=== PATIENT | female | born 1980 | race Caucasian/White ===

== ENCOUNTER 2018-11-03 19:46 | Day surgery (SDC) | payer OTHER ==
[2018-11-03 20:47] LABS: BHCG - Serum POSITIVE (NEGATIVE); Pregs Control Background? CLEAR/WHITE (CLR/WHITE); Pregs Control Bar Appear? YES (CONTROL BAR)
[2018-11-03 20:53] LABS: #Eosinphils 0.2 thou/uL (0.0-0.7); #Lymphocytes 1.5 thou/uL (1.20-3.40); #Monocytes 0.4 thou/uL (0.11-0.59); #Neutrophils 8.8 thou/uL (1.40-6.50); %Basophils 0.3 % (0.0-1.0); %Lymphocytes 13.5 % (21.0-51.0); %Neutrophils 80.3 % (42.0-75.0); Hemoglobin 11.7 g/dL (12.0-16.0); Mean Corpuscular HGB CONC 35.7 g/dL (32.0-36.0); Mean Corpuscular Hemoglobin 36.3 pg (27.0-31.0); Mean Platelet Volume 6.6 fL (7.4-10.4); Platelet Count 199 thou/uL (130-400); RBC Distribution Width 13.2 % (11.5-14.5); Red Blood Cell (RBC) Count 3.22 mill/uL (4.20-5.40); White Blood Cell (WBC) Count 10.9 thou/uL (4.8-10.8)
[2018-11-03 21:00] LABS: ALT (SGPT) 13 U/L (8-55); AST (SGOT) 14 U/L (5-34); Albumin 3.3 g/dL (3.5-5.0); Alkaline Phosphatase 102 U/L (40-150); Anion Gap 11 mmol/L (10-20); BUN (Urea Nitrogen) Less than 4 mg/dL (7.0-18.7); Bilirubin, Total 0.5 mg/dL (0.2-1.2); Calc. Creatinine Clearance 0 mL/min (70-130); Calcium 8.7 mg/dL (7.8-10.44); Carbon Dioxide 25 mmol/L (22-29); Chloride 103 mmol/L (98-107); Estimated GFR-MDRD 78; Globulin 2.9 g/dL (2.4-3.5); Glucose 87 mg/dL (70-105); Potassium 3.6 mmol/L (3.5-5.1); Protein, Total 6.2 g/dL (6.0-8.3); Sodium 135 mmol/L (136-145)
[2018-11-03 21:56] VITALS: BP 107/68; TEMP 98.3; BMI 25.8
[2018-11-03 22:19] LABS: Bacteria/HPF 2+ HPF (None Seen); Bilirubin Negative (Negative); Blood, Urine Trace (Negative); Clarity Turbid (Clear); Glucose, Urine (Dipstick) Normal (Negative); Leukocyte 500 Leu/uL (Negative); Nitrite Negative (Negative); Protein, Urine (Dipstick) 20 mg/dL (Neg-Trace); Squamous Epithelial 0-3 HPF (0-3); Urobilinogen Normal mg/dL (Less than 2); WBC/HPF Greater than 50 HPF (0-3)
[2018-11-03 22:30] LABS: Urine Culture Reflex Yes Yes; Yeast-Budding None Seen HPF (None Seen)
--- NOTE | 2018-11-03 22:31 | PDOC.LDHP ---
Labor and Delivery H&P Chief complaint: other (right flank pain) HPI: 38 y/o at 23w2d, patient of Dr. Haynes, presents with right flank pain and concerned about kidney stone. Pain is constant but intermittently worse and radiating to groin. Was recently seen in clinic and treated for UTI. Was seen again today and told she had blood in her urine but UTI was cleared. Denies VB, LOF, ctx, or decreased FM. ROS neg for HEENT, cv, pulm, gi, gu, neuro, psych, skin, musculoskeletal or constitutional symptoms other than mentioned above. OB History Details: 4 TSVD 1 at 36 weeks Current complications: other (?previa) Past Medical History: Kevin's Current medications: pre-naman vitamins, other (synthroid 100mcg) Previous surgical history: none Allergies/Adverse Reactions: Allergies Allergy/AdvReac Type Severity Reaction Status Date / Time No Known Drug Allergies Allergy Verified 11/03/18 21:54 Social history: none - Physical Exam Vital signs reviewed and normal: yes General: NAD, resting Lungs: nonlabored breathing Abdomen: gravid (mild CVA tenderness on R) Extremeties: no edema FHT: category 1 (150s, mod variability, + accels, no decels) [place] contractions every: none - Assessment 38 y/o at 23w2d with early pyelo vs kidney stone. Afebrile, WBC 10.9. status reassuring for GA. - Plan -: Given 1L NS, Rocephin IV, and a dose of Flomax. Discussed with Dr. Haynes - Will d/c home to return tomorrow for second dose. Strict precautions given.
--- NOTE | 2018-11-03 23:04 | ULT ---
Renal ultrasound: 11/03/2018 COMPARISON: None HISTORY: 38-year-old female with hematuria, back pain, 23 weeks TECHNIQUE: Multiplanar grayscale sonographic imaging of the kidneys and urinary bladder. FINDINGS: The right kidney demonstrates a moderate degree of hydronephrosis. Right kidney measures 11 .6 cm in craniocaudal dimension. Urinary bladder is nearly empty, with a volume of approximately 42 cc. No hydronephrosis is noted on the left. Left kidney measures 10.9 cm in craniocaudal dimension. On image 25 there is a small echogenic focus posterior to the urinary bladder just to the right of mi dline measuring 4 x 2 mm. This could conceivably represent a stone within the distal right ureter. This could also represent a soft tissue or vascular calcification. Ureteral jets could not be obtaine d on either side. IMPRESSION: Right-sided hydronephrosis. Punctate focus of increased echogenicity posterior to the uri nary bladder to the right of midline as detailed above.
[2018-11-03] MEDS ORDERED: Lactated Ringer's 1,000 ML IV SCH (23:15)
[2018-11-03] MEDS ORDERED: Sodium Chloride 0.9% 1,000 ML IV SCH (23:30)
[2018-11-03] MEDS ORDERED: Tamsulosin HCl 0.4 MG CAP PO SCH (23:45)
[2018-11-03] MEDS ORDERED: cefTRIAXone\\ROCEPHIN 1 GM in Sodium Chloride 0.9% 100 ML IVPB SCH (23:59)
[2018-11-04] MEDS ORDERED: Tamsulosin HCl 0.4 MG CAP PO SCH (09:00)
== END 2018-11-04 00:42 | disposition home or self-care (01) ==
LOC: ERS 19:46 → L&D/OP 19:46 → EDSTATUS 21:21 → L&D/OP 11-04 00:42
PROVIDERS: ATTEND Obstetrics & Gynecology
DX: O99.89 Other specified diseases and conditions complicating pregnancy, childbirth and the puerperium (principal); N13.30 Unspecified hydronephrosis; O99.283 Endocrine, nutritional and metabolic diseases complicating pregnancy, third trimester; E06.3 Autoimmune thyroiditis; Z3A.23 23 weeks gestation of pregnancy; Z79.899 Other long term (current) drug therapy
CPT/HCPCS: 36415; 76770; 80053; 81001; 84703; 85025; 87077; 87086; 96361; 96365; 99283; J0696; J3490

== ENCOUNTER 2019-02-28 23:21 | Inpatient (IN) | payer OTHER ==
[2019-02-28] MEDS ORDERED: hydrALAZINE 20 MG/ML VIAL SLOW IVP PRN (23:51)
[2019-02-28 23:52] VITALS: BMI 27.4
--- NOTE | 2019-02-28 23:54 | PDOC.LDHP ---
Labor and Delivery H&P Chief complaint: contractions HPI: 38 y/o at 40w0d presents with ctx q 5-10 mins since this morning with blood tinged mucus. Denies heavy VB, LOF, or decreased FM. Patient lost her insurance earlier this and now has [employer]. She has not had care since 23 weeks. Prior to that, she saw Dr. Haynes. ROS neg for HEENT, CV, pulm, GI, , neuro, psych, skin, musculoskeletal, or constitutional symptoms other than mentioned above. OB History Details: 4 TSVD 1 at 36 weeks Current complications: other (no care since 23 weeks) Past Medical History: [place] Hx kidney stones Current medications: pre-naman vitamins, other (synthroid 100mcg) Previous surgical history: none Allergies/Adverse Reactions: Allergies Allergy/AdvReac Type Severity Reaction Status Date / Time No Known Drug Allergies Allergy Verified 02/28/19 23:45 Social history: none - Physical Exam Vital signs reviewed and normal: yes General: NAD, resting Lungs: nonlabored breathing Abdomen: gravid Extremeties: no edema FHT: category 1 (130s, mod variability, + accels, no decels) [place] contractions every: 6-7 mins - Vaginal Exam cm dilated: 3 Effacement: 90% Station: -2
[2019-03-01] MEDS ORDERED: hydrALAZINE 20 MG/ML VIAL SLOW IVP PRN ×2 (01:43→06:53)
[2019-03-01] MEDS ORDERED: NS / Oxytocin 40 units/1000ml 1,000 ML IV PRN ×2 (01:43→01:45)
[2019-03-01] MEDS ORDERED: Promethazine HCl 25 MG/ML VIAL IM PRN ×3 (01:43→06:53)
[2019-03-01] MEDS ORDERED: Butorphanol Tartrate 1 MG/ML VIAL SLOW IVP PRN (01:43)
[2019-03-01] MEDS ORDERED: Lidocaine 1% (PF) 30 ML VIAL SC PRN ×2 (01:43→01:45)
[2019-03-01] MEDS ORDERED: Acetaminophen 500 MG TAB PO PRN (01:43)
[2019-03-01] MEDS ORDERED: Ondansetron PF 4 MG/2 ML Vial IVP PRN ×3 (01:43→06:53)
[2019-03-01] MEDS ORDERED: Carboprost 250 MCG/ML AMP IM PRN (01:45)
[2019-03-01] MEDS ORDERED: Methylergonovine 0.2 MG/ML VIAL IM PRN ×2 (01:45→06:53)
[2019-03-01] MEDS ORDERED: Misoprostol 200 MCG TAB PR PRN (01:45)
[2019-03-01] MEDS ORDERED: Ibuprofen 800 MG TAB PO PRN (01:45)
[2019-03-01] MEDS ORDERED: HYDROcodone/Acetaminophen 5/325 mg Tablet PO PRN ×4 (01:45→06:53)
[2019-03-01] MEDS ORDERED: Diphenoxylate HCl/Atropine Tablet PO PRN ×2 (01:45)
[2019-03-01] MEDS: Lactated Ringer's 1,000 ML IV SCH ×3 (02:00→04:13)
[2019-03-01 02:22] LABS: Hemoglobin 11.1 g/dL (12.0-16.0); Mean Corpuscular HGB CONC 35.5 g/dL (32.0-36.0); Mean Corpuscular Hemoglobin 33.1 pg (27.0-31.0); Mean Corpuscular Volume 93.4 fL (78.0-98.0); Mean Platelet Volume 7.4 fL (7.4-10.4); Platelet Count 171 thou/uL (130-400); RBC Distribution Width 14.8 % (11.5-14.5); Red Blood Cell (RBC) Count 3.36 mill/uL (4.20-5.40); White Blood Cell (WBC) Count 13.5 thou/uL (4.8-10.8)
[2019-03-01] MEDS ORDERED: Fentanyl 4 mcg/Bup 0.1% Cadd 100 ML ONE (02:33)
[2019-03-01 03:00] LABS: HBSAg Index 0.12 S/CO (0-0.99); Hep B Surf Ag Non-Reactive S/CO (NonReactive)
[2019-03-01] MEDS ORDERED: Fentanyl 4 mcg/Bupivacaine 0.1% Cassette 100 ML EPIDURAL SCH (03:30)
[2019-03-01] MEDS ORDERED: diphenhydrAMINE 50 MG/ML VIAL IVP PRN (03:30)
[2019-03-01] MEDS ORDERED: ePHEDrine/0.9% NaCl/PF SYRINGE 50 mg/10 ml SLOW IVP PRN (03:30)
[2019-03-01] MEDS ORDERED: Naloxone HCl 0.4 mg/ml Vial IVP PRN ×2 (03:30)
[2019-03-01] MEDS ORDERED: Acetaminophen 325 MG TAB PO PRN (03:30)
[2019-03-01] MEDS ORDERED: Communication Order-Pharmacy FS SCH (03:30)
[2019-03-01] MEDS ORDERED: Lactated Ringer's 500 ML IV PRN (03:30)
[2019-03-01 05:08] LABS: Amphetamine Not Detected (NotDetected); Barbiturates Screen Not Detected (NotDetected); Benzodiazepine Screen Not Detected (NotDetected); Cocaine Metabolite Screen Not Detected (NotDetected); Medtox Control Line Valid? VALID (VALID); Medtox Reader # READER 4; Methadone Not Detected (NotDetected); Methamphetamine Not Detected (NotDetected); Opiate Screen Not Detected (NotDetected); Oxycodone Screen Not Detected (NotDetected); Phencyclidine (PCP) Not Detected (NotDetected); THC/Cannabinoid Screen Not Detected (NotDetected); Tricyclic Screen Not Detected (NotDetected)
[2019-03-01 05:10] LABS: Syphilis Antibody Nonreactive (Nonreactive); Syphilis Antibody Index 0.04 S/CO (<1.00 Non-Reactive)
[2019-03-01] MEDS ORDERED: Bisacodyl 10 MG SUPP PR PRN (06:53)
[2019-03-01] MEDS ORDERED: Zolpidem Tartrate 5 MG TAB PO PRN (06:53)
[2019-03-01] MEDS ORDERED: Benzocaine-Menthol 82.5 ML CAN TOP PRN (06:53)
[2019-03-01] MEDS ORDERED: Preparation H Ointment 28 GM TUBE PR PRN (06:53)
[2019-03-01] MEDS ORDERED: Lanolin Ointment 7 GM TUBE TOP PRN (06:53)
[2019-03-01] MEDS ORDERED: Misoprostol 200 MCG TAB VAG PRN (06:53)
[2019-03-01] MEDS ORDERED: Milk Of Magnesia 30 ML UDCUP PO PRN (06:53)
--- NOTE | 2019-03-01 06:55 | PDOC.OPDEL ---
OB Operative/Delivery Note Delivery Dr/Surgeon: Tobi Pre-Delivery Diagnosis: active labor Procedure/Post Delivery Dx: spontaneous vaginal delivery Weeks gestation: 40 Anesthesia: epidural - Findings A Sex: male ("Vadim") - 1 min: 8 - 5 min: 9 - Additional Findings/Plan Placenta delivered: spontaneous Repaired Obstetrical Laceration: none Post delivery plan: routine recovery
[2019-03-01] MEDS ORDERED: NS / Oxytocin 40 units/1000ml 1,000 ML IV SCH (07:00)
[2019-03-01] MEDS ORDERED: Adacel (T-DAP) 0.5 ML SYRINGE IM ONE (09:00)
[2019-03-01] MEDS ORDERED: Measles/Mumps/Rubella 10 MCG/0.5 ML VIAL SC ONE (09:00)
[2019-03-01] MEDS ORDERED: Varicella virus, LIVE 0.5 ML VIAL SC ONE (09:00)
[2019-03-01] MEDS: Ferrous Sulfate 325 MG TAB PO SCH ×2 (10:25→17:16)
[2019-03-01] MEDS: Prenatal Vitamin 1 TAB PO SCH (10:26)
[2019-03-01] MEDS: Docusate Calcium (SURFAK) 240 MG CAP PO SCH ×2 (10:26→21:47)
[2019-03-01 11:29] LABS: HIV (1/2) Antibody/Antigen Non-Reactive (NonReactive)
[2019-03-01] MEDS: Ibuprofen 800 MG TAB PO SCH ×2 (14:03→21:47)
[2019-03-01] MEDS: diphenhydrAMINE 25 MG CAP PO PRN ×2 (16:51→21:52)
[2019-03-01] MEDS ORDERED: FLU VACC QS2019-20(6MOS UP)/PF 60 MCG/0.5 ML SYRINGE IM ONE (21:00)
--- NOTE | 2019-03-02 06:14 | PDOC.PP ---
Post Progress Note Post Day #: 1 Subjective: Doing well PO intake tolerated: yes Flatus: yes Ambulation: yes Vital Signs (12 hours) Temp Pulse Resp BP Pulse Ox 03/01/19 20:00 98 03/01/19 19:58 98.5 F 91 16 110/71 98 Weight Weight 155 lb Vitals reviewed last 24 hrs: afebrile, normotensive - Physical Examination General: NAD Respiratory: non-labored breathing Abdominal: + bowel sounds, lochia, no distention, appropriately TTP Extremities: negative homans (B) Neurological: no gross focal deficits Psychiatric: A&Ox3, normal affect Result Diagrams: 03/01/19 02:09 Additional Labs: Post Labs Blood Type A POSITIVE 03/01/19 02:50 Hep Bs Antigen Non-Reactive S/CO (NonReactive) 03/01/19 02:09 (1) Vaginal delivery Code(s): O80 - ENCOUNTER FOR FULL-TERM UNCOMPLICATED DELIVERY Status: Acute - Assessment/Plan [id number] after vaginal delivery with unknown GBS status. We will await 48 hrs ( tomorrow) for pedi routine eval for unknown GBS status.
[2019-03-02] MEDS: Ibuprofen 800 MG TAB PO SCH ×3 (07:31→21:45)
[2019-03-02 08:37] VITALS: TEMP 97.6
[2019-03-02] MEDS: Ferrous Sulfate 325 MG TAB PO SCH ×2 (09:12→14:15)
[2019-03-02] MEDS: Prenatal Vitamin 1 TAB PO SCH (09:13)
[2019-03-02] MEDS: Docusate Calcium (SURFAK) 240 MG CAP PO SCH ×2 (09:13→21:46)
[2019-03-03] MEDS: Ibuprofen 800 MG TAB PO SCH (05:39)
[2019-03-03] MEDS: Ferrous Sulfate 325 MG TAB PO SCH (07:41)
[2019-03-03 09:03] VITALS: BP 117/79
[2019-03-03] MEDS: Docusate Calcium (SURFAK) 240 MG CAP PO SCH (09:35)
[2019-03-03] MEDS: Prenatal Vitamin 1 TAB PO SCH (09:35)
--- NOTE | 2019-03-03 11:52 | DIS ---
DATE OF ADMISSION: 03/01/2019 DATE OF DISCHARGE: 03/03/[address] Haynes. HISTORY OF PRESENT ILLNESS: The patient is a 38-year-old grand multiparous female, who presented to Labor and Delivery in active labor at 40 weeks gestation resulting in a term spontaneous vaginal delivery. She had received care with Dr. Haynes up to about 23 weeks gestation due to change in insurance, had not sought care since that time. For complete details of her delivery, please refer to her delivery note. Her course has been uncomplicated. She is now day 2, tolerating p.o., voiding on her own, having decreased lochia and good pain control. PHYSICAL EXAMINATION: VITAL SIGNS: Blood pressure is 119/75, temperature 97.6, pulse of 85, respiratory rate of 20, saturating 100% on room air. GENERAL: She appears to be in no acute distress. She is alert, oriented, cooperative, and pleasant to interact with. HEENT: Head is normocephalic and atraumatic. ABDOMEN: Fundus is firm. EXTREMITIES: Nontender, nonedematous. LABORATORY DATA: Her post delivery hemoglobin has not been performed. Hemoglobin at the time of delivery was 11.1 and hematocrit 31.4. Quantitative blood loss is 125 mL. MEDICATIONS: The patient is being discharged to home with ibuprofen 600 mg to be taken every 6 hours as needed for pain. DISCHARGE INSTRUCTIONS: She has instructions to follow up in 6 weeks for routine visit. She intends to see Dr. Haynes as her insurance should be changing by the end of the year and she has been given instructions to seek medical attention should she experience fever, increasing pain, or bleeding before then. Job ID: [id number]
[2019-03-04] MEDS ORDERED: FLU VACC QS2019-20(6MOS UP)/PF 60 MCG/0.5 ML SYRINGE IM ONE (08:30)
== END 2019-03-03 10:38 | disposition home or self-care (01) | DRG 807 ==
LOC: L&D/OP 23:21 → L&D 03-01 02:47 → 3SW 03-01 09:53
PROVIDERS: ADMIT Obstetrics & Gynecology; ATTEND Obstetrics & Gynecology
PROC: 10E0XZZ Delivery of Products of Conception, External Approach (ICD-10-PCS; principal; 2019-03-01)
PROC: 10907ZC Drainage of Amniotic Fluid, Therapeutic from Products of Conception, Via Natural or Artificial Opening (ICD-10-PCS; 2019-03-01)
DX: O80 Encounter for full-term uncomplicated delivery (principal); Z37.0 Single live birth; Z3A.40 40 weeks gestation of pregnancy; E06.3 Autoimmune thyroiditis; O99.284 Endocrine, nutritional and metabolic diseases complicating childbirth
CPT/HCPCS: 36415; 51702; 80306; 85027; 86762; 86780; 86850; 86900; 86901; 87340; 87389; 90471; 90686; 99285; G0008; J2405; Q0163

== ENCOUNTER 2022-09-15 18:34 | Observation (INO) | payer MEDICAID, OTHER ==
[2022-09-15 19:44] LABS: #Basophils 0.1 thou/uL (0.0-0.2); #Eosinphils 0.5 thou/uL (0.0-0.7); #Monocytes 0.4 thou/uL (0.11-0.59); #Neutrophils 5.5 thou/uL (1.40-6.50); %Basophils 0.6 % (0.0-1.0); %Eosinophils 5.4 % (0.0-10.0); %Lymphocytes 25.6 % (21.0-51.0); %Monocytes 4.9 % (0.0-10.0); %Neutrophils 63.2 % (42.0-75.0); Mean Corpuscular HGB CONC 34.9 g/dL (32.0-36.0); Mean Corpuscular Volume 100.5 fl (78.0-98.0); Mean Platelet Volume 10.1 fL (7.4-10.4); Platelet Count 229 10x3/uL (130-400); Red Blood Cell (RBC) Count 4.28 mill/uL (4.20-5.40); White Blood Cell (WBC) Count 8.7 10x3/uL (4.8-10.8)
[2022-09-15 19:54] LABS: Bacteria/HPF None Seen HPF (None Seen); Bilirubin Negative (Negative); Blood, Urine Negative (Negative); CAUTI Indications for Culture Pelvic or flank pain; Clarity Clear (Clear); Glucose, Urine (Dipstick) Normal (Negative); Ketone, Urine Negative (Negative); Leukocyte Negative Leu/uL (Negative); Nitrite Negative (Negative); Protein, Urine (Dipstick) Negative (Neg-Trace); RBC/HPF 0-3 HPF (0-3); Specific Gravity, Urine 1.004 (1.002-1.036); Squamous Epithelial 0-3 HPF (0-3); Urobilinogen Normal mg/dL (Less than 2); WBC/HPF 0-3 HPF (0-3); pH, Urine 5.5 (5.0-9.0)
[2022-09-15 19:59] LABS: Urine Culture Reflex No No
[2022-09-15 20:06] LABS: ALT (SGPT) 20 U/L (8-55); AST (SGOT) 22 U/L (5-34); Albumin 4.7 g/dL (3.5-5.0); Alkaline Phosphatase 97 U/L (40-110); Anion Gap 14 mmol/L (10-20); BUN (Urea Nitrogen) 8 mg/dL (7.0-18.7); Bilirubin, Total 1.1 mg/dL (0.2-1.2); CK (CPK) 122 U/L (29-168); Calc. Creatinine Clearance 0 mL/min (70-130); Calcium 9.6 mg/dL (7.8-10.44); Carbon Dioxide 23 mmol/L (22-29); Chloride 105 mmol/L (98-107); Estimated GFR 65; Globulin 3.5 g/dL (2.4-3.5); Glucose 94 mg/dL (70-105); Lipase 23 U/L (8-78); Potassium 3.6 mmol/L (3.5-5.1); Protein, Total 8.2 g/dL (6.0-8.3); Sodium 138 mmol/L (136-145)
[2022-09-15 21:09] LABS: BHCG - Serum Negative (NEGATIVE); Pregs Control Background? CLEAR/WHITE (CLR/WHITE); Pregs Control Bar Appear? YES (CONTROL BAR)
[2022-09-15] MEDS ORDERED: Morphine 2 MG/ML VIAL ONE (22:19)
[2022-09-15] MEDS ORDERED: Ondansetron PF 4 MG/2 ML Vial ONE (22:19)
[2022-09-15] MEDS ORDERED: Morphine 4 MG/ML VIAL SLOW IVP PRN (22:23)
[2022-09-15] MEDS ORDERED: Ketorolac Tromethamine 30 MG/ML VIAL IVP PRN (22:24)
[2022-09-15] MEDS ORDERED: Ondansetron ODT 4 MG TAB SL PRN (22:30)
[2022-09-15] MEDS ORDERED: Ondansetron PF 4 MG/2 ML Vial IVP PRN (22:30)
[2022-09-15 23:54] VITALS: BMI 29.7
[2022-09-16] MEDS: Sodium Chloride 0.9% 1,000 ML IV SCH ×2 (00:21→13:40)
[2022-09-16] MEDS ORDERED: Ipratropium/Albuterol 3 ML NEB NEB PRN (05:02)
[2022-09-16] MEDS ORDERED: traMADol HCl 50 MG TAB PO PRN (05:02)
[2022-09-16] MEDS ORDERED: Cyclobenzaprine 10 MG TAB PO PRN (05:02)
[2022-09-16] MEDS: traMADol HCl 50 MG TAB PO SCH ×3 (05:58→20:39)
[2022-09-16] MEDS: Acetaminophen 325 MG TAB PO SCH ×4 (05:58→20:38)
[2022-09-16 06:43] LABS: INR-International Normal Ratio 1.1; PTT 28.8 sec (22.9-36.1); Prothrombin Time 14.6 sec (12.0-14.7)
[2022-09-16 07:39] LABS: ALT (SGPT) 15 U/L (8-55); AST (SGOT) 16 U/L (5-34); Albumin 3.6 g/dL (3.5-5.0); Alkaline Phosphatase 78 U/L (40-110); Bilirubin, Direct 0.3 mg/dL (0.1-0.3); Protein, Total 6.1 g/dL (6.0-8.3)
[2022-09-16] MEDS ORDERED: Bupivacaine/Epinephrine 0.25% 30 ML VIAL ONE (09:26)
[2022-09-16] MEDS ORDERED: Ondansetron PF 4 MG/2 ML Vial ONE ×2 (09:44→09:58)
[2022-09-16] MEDS ORDERED: HYDROmorphone 0.5 MG/0.5 ML SYRINGE ONE (09:44)
[2022-09-16] MEDS ORDERED: Esmolol 100 MG/10 ML VIAL ONE ×2 (09:44→09:58)
[2022-09-16] MEDS ORDERED: fentaNYL PF 100 MCG/2 ML SYRINGE ONE (09:44)
[2022-09-16] MEDS ORDERED: CEFAZOLIN 2 GM VIAL ONE (09:48)
[2022-09-16] MEDS ORDERED: Sodium Chloride 0.9% 100 ML ONE (09:48)
[2022-09-16] MEDS ORDERED: Midazolam HCl 2 mg/2 ml Vial ONE (09:56)
[2022-09-16] MEDS ORDERED: PROPOFOL 200 MG/20 ML VIAL ONE (09:58)
[2022-09-16] MEDS ORDERED: Lidocaine 1% PF 5 ML VIAL ONE (09:58)
[2022-09-16] MEDS ORDERED: Ketorolac Tromethamine 30 MG/ML VIAL ONE (09:58)
[2022-09-16] MEDS ORDERED: Rocuronium Bromide 10 MG/ML (10ML VIAL) ONE (09:58)
[2022-09-16] MEDS ORDERED: Dexamethasone 20 MG/5 ML VIAL ONE (09:58)
[2022-09-16] MEDS ORDERED: Ibuprofen 200 MG TAB PO PRN (11:26)
[2022-09-16] MEDS ORDERED: fentaNYL 50 mcg/mL 1 mL Vial ONE ×2 (11:48→13:00)
[2022-09-16] MEDS: Senokot S 8.6-50 MG TAB PO SCH ×2 (13:30→20:39)
[2022-09-16] MEDS: Polyethylene Glycol 3350 17 GM Packet PO SCH (13:30)
[2022-09-16] MEDS ORDERED: Ondansetron PF 4 MG/2 ML Vial IVP PRN ×2 (16:14→16:19)
[2022-09-16] MEDS ORDERED: Ondansetron PF 4 MG/2 ML Vial IVP SCH (16:30)
[2022-09-16] MEDS ORDERED: Sodium Chloride 0.9% 1,000 ML IV SCH (21:00)
[2022-09-16] MEDS ORDERED: Scopolamine 1.5 mg/72 hour Patch TD SCH (21:00)
[2022-09-16] MEDS ORDERED: Ketorolac Tromethamine 30 MG/ML VIAL IVP PRN (21:17)
[2022-09-17] MEDS: traMADol HCl 50 MG TAB PO SCH ×3 (00:51→12:28)
[2022-09-17] MEDS: Acetaminophen 325 MG TAB PO SCH ×3 (00:51→12:21)
[2022-09-17] MEDS: Senokot S 8.6-50 MG TAB PO SCH (09:43)
[2022-09-17] MEDS: Polyethylene Glycol 3350 17 GM Packet PO SCH (09:43)
[2022-09-17] MEDS ORDERED: Ondansetron ODT 4 MG TAB PO PRN (11:45)
[2022-09-17 12:21] VITALS: BP 116/79; TEMP 97.7
== END 2022-09-17 12:43 | disposition home or self-care (01) ==
LOC: ERS 18:34 → SURG B 22:15
PROVIDERS: ADMIT Specialist; ATTEND Specialist
PROC: 0FT44ZZ Resection of Gallbladder, Percutaneous Endoscopic Approach (ICD-10-PCS; principal; 2022-09-16)
DX: K80.12 Calculus of gallbladder with acute and chronic cholecystitis without obstruction (principal)
CPT/HCPCS: 36415; 76705; 80053; 80076; 81001; 82550; 83690; 84703; 85025; 85610; 85730; 86850; 86900; 86901; 88304; 94760; 96365; 96375; 96376; C1889; G0378; J1100; J1170; J1885; J1956; J2250; J2272; J2405; J2704; J3010; J3490; J7050; Q0162

== ENCOUNTER 2024-01-07 15:33 | Emergency (ER) | payer MEDICAID ==
[2024-01-07 16:45] LABS: #Basophils 0.03 10x3/uL (0.0-0.2); %Basophils 0.5 % (0.0-1.0); %Lymphocytes 23.4 % (21.0-51.0); %Monocytes 5.6 % (0.0-10.0); %Neutrophils 67.3 % (42.0-75.0); Hemoglobin 15.2 g/dL (12.0-16.0); Mean Corpuscular HGB CONC 35.3 g/dL (32.0-36.0); Mean Corpuscular Hemoglobin 35.2 pg (27.0-31.0); Mean Corpuscular Volume 99.5 fL (78.0-98.0); Platelet Count 220 10x3/uL (130-400); RBC Distribution Width 12.5 % (11.5-14.5); Red Blood Cell (RBC) Count 4.32 mill/uL (4.20-5.40)
[2024-01-07 17:00] LABS: ALT (SGPT) 42 U/L (8-55); AST (SGOT) 33 U/L (5-34); Albumin 4.1 g/dL (3.5-5.0); Alkaline Phosphatase 85 U/L (40-110); Anion Gap 12 mmol/L (10-20); BUN (Urea Nitrogen) 12 mg/dL (7.0-18.7); Bilirubin, Total 0.6 mg/dL (0.2-1.2); Calc. Creatinine Clearance 0 mL/min (70-130); Calcium 9.6 mg/dL (7.8-10.44); Carbon Dioxide 25 mmol/L (22-29); Chloride 105 mmol/L (98-107); Estimated GFR 74; Globulin 3.9 g/dL (2.4-3.5); Glucose 146 mg/dL (70-105); Potassium 3.9 mmol/L (3.5-5.1); Sodium 138 mmol/L (136-145)
[2024-01-07] MEDS ORDERED: Ketorolac Tromethamine 30 MG (1 mL) VIAL ONE ×2 (17:02→17:40)
== END 2024-01-07 18:18 | disposition home or self-care (01) ==
LOC: ERS 15:33
DX: K08.89 Other specified disorders of teeth and supporting structures (principal); R50.9 Fever, unspecified
CPT/HCPCS: 36415; 80053; 85025; 96372; 99283; J1885